=== PATIENT | female | born 1975 | race Caucasian/White ===

== ENCOUNTER 2016-07-16 08:47 | Emergency (ER) | payer OTHER ==
[~2016-07-16] VITALS: Ht 165.1 cm; Wt 62.5 kg
[2016-07-16 08:51] VITALS: Ht 165.1 cm; Wt 62.5 kg
[2016-07-16 09:53] LABS: URINE BLOOD (Dip) POC 2+ (NEGATIVE)
[2016-07-16] MEDS ORDERED: ACET325T33 PO (09:58)
[2016-07-16] MEDS ORDERED: CIPR500T4 PO (09:58)
[2016-07-16] MEDS ORDERED: LIDOCAINE 1% (MDV) 20 ML INJ SC ONE (10:00)
[2016-07-16] MEDS ORDERED: CEFTRIAXONE 1 GM INJ IM ONE (10:00)
--- NOTE | 2016-07-16 11:54 | ERD ---
DATE OF SERVICE: 07/16/2016 HISTORY OF PRESENT ILLNESS: The patient is a 41-year-old female coming in complaining of tactile fe vers with generalized body aches. She states that she has had this pain for the last couple days. She states that she took Tylenol this morning at 6:00 a.m. She has not documented a fever, but feel s warm. She does not have any vomiting, no cough, no sore throat, no runny nose. She has noticed s ome pain in her left lower back. She denies any problems with urination or hematuria. She has neve r had this before. Denies sick contacts. PAST MEDICAL HISTORY: Denies medical problems. ALLERGIES: DENIES. PAST SURGICAL HISTORY: Denies. HOSPITALIZATIONS: Denies. REVIEW OF SYSTEMS: A 12-point review of systems was done. Refer to HPI for positives, all other sy stems negative. PHYSICAL EXAMINATION VITAL SIGNS: Temperature is 98.2, pulse 79, blood pressure is 143/80, respiratory 18, O2 saturation 97% on room air. Pain intensity is 0/10. GENERAL: The patient is well-appearing, well-nourished, no acute distress. HEENT: Atraumatic. Conjunctivae are pink. Pupils equal, round, and reactive to light. There is no sc leral icterus. Tympanic membranes clear bilaterally. Oropharynx clear. No nystagmus or photophobia. CHEST: Clear to auscultation bilaterally. There are no rales, wheezes or rhonchi. HEART: Regular rate and rhythm. No murmurs, clicks, rubs or gallops. No S3 or S4. BACK: The patient has positive CVA tenderness on the left side. ABDOMEN: Normoactive bowel sounds heard on auscultation. No distention, no organomegaly, no tender ness to palpation in the left or right lower quadrants. EMERGENCY ROOM COURSE: The patient had a urine dip checked in the ER. Patient's urine showed 2+ le ukocytes with positive nitrites, 2+ blood, 2+ ketones, and 2+ protein. The patient was given Roceph in IM injection as there is concern for pyelonephritis and the patient's urine was sent for culture. DIAGNOSIS: Urinary tract infection. MEDICAL DECISION MAKING: The patient is afebrile, but the patient does have positive urine with CVA tenderness so there is concern for early pyelo. I will treat with antibiotics with the full course of 10 days of Cipro to cover for possible early pyelonephritis. I have low suspicion for septic sto ne, as the patient is not having severe sharp stabbing flank pain. I have low suspicion for other a cute abdominal etiologies. The patient's exam is nonconcerning. I have low suspicion for meningiti s or sepsis. Patient's exam is nonconcerning. DISCHARGE: The patient is discharged stable. Patient given prescription for Cipro 500 mg for 10 da ys and told to follow up with primary care within 1 to 2 days for reevaluation. Patient was also gi noelle prescription for Tylenol. All other questions answered at time of discharge. Discharge summary given at the time of departure. Patient understood and complied with plan. Dictated By: DEBORAH CORRAL for KATERINA BEST/FRANSISCO Conf#: [id number] DID#: [id number]
== END 2016-07-16 10:26 | disposition home or self-care (01) ==
LOC: FTE 08:47
DX: N39.0 Urinary tract infection, site not specified (principal)
CPT/HCPCS: 81003; 87086; 96372; J0696; Z7502; Z7610

== ENCOUNTER 2016-08-04 14:42 | Emergency (ER) | payer OTHER ==
[~2016-08-04] VITALS: Wt 64.0 kg
[~2016-08-04 14:42] MED LIST: ACET325T33 PO; CIPR500T4 PO
[2016-08-04] MEDS ORDERED: HYDROCODONE/APAP (5/325) TAB PO ONE (15:30)
[2016-08-04] MEDS ORDERED: SILVER SULFADIAZINE 1% 25 GM CR TOP ONE (15:30)
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
[2016-08-04] MEDS ORDERED: CYCL-319 PO (17:59)
[2016-08-04] MEDS ORDERED: HYDR-906 PO (17:59)
[2016-08-04] MEDS ORDERED: NAPR-260 PO (18:00)
[2016-08-04] MEDS ORDERED: SSD1C20 TOP (18:00)
[2016-08-04 18:10] VITALS: BP 118/65; PULSE 76; RESP 18; TEMP 98
== END 2016-08-04 18:11 | disposition home or self-care (01) ==
LOC: FTE 14:42
DX: S29.001A Unspecified injury of muscle and tendon of front wall of thorax, initial encounter (principal); S80.12XA Contusion of left lower leg, initial encounter; T25.121A Burn of first degree of right foot, initial encounter; S99.922A Unspecified injury of left foot, initial encounter; S09.93XA Unspecified injury of face, initial encounter; V49.40XA Driver injured in collision with unspecified motor vehicles in traffic accident, initial encounter; X19.XXXA Contact with other heat and hot substances, initial encounter
CPT/HCPCS: 16000; 70450; 70486; 71010; 73562; 73630; Z7610